=== PATIENT | male | born 1985 | race Caucasian/White ===

== ENCOUNTER 2017-10-18 18:19 | Emergency (ER) | payer OTHER ==
[2017-10-18 18:27] VITALS: BP 122/79
[2017-10-18] MEDS ORDERED: LIDOCAINE 1% INJ-PF (10 MG/ML) 30 ML SDV INJ ONE (19:41)
[2017-10-18] MEDS ORDERED: DOXYCYCLINE HYCLATE 100 MG TABLET PO ONE (20:17)
--- NOTE | 2017-10-18 20:22 | ER Document Report ---
ED General - General Chief Complaint: Finger Injury Stated Complaint: FINGER INJURY Time Seen by Provider: 10/18/17 19:41 TRAVEL OUTSIDE OF THE [place] IN LAST 30 DAYS: No - HPI Notes: 32-year-old male presents with fishhook stuck in his left index finger. This is a right-hand male who is up-to-date with tetanus, indicates he was fishing just prior to arrival in the hook became stuck in his index finger near his DIP on the volar surface. Immediate sharp pain, nonradiating. Clean fishhook. Attached to a Luhr. No other modifying factors, no other associated symptoms, no other provocative or palliative factors. - Related Data Allergies/Adverse Reactions: No Known Allergies Allergy (Unverified 10/18/17 18:23) Past Medical History - Social History Smoking Status: Never Smoker Family History: Reviewed & Not Pertinent Patient has suicidal ideation: No Patient has homicidal ideation: No - Medical History Medical History: Negative Renal/ Medical History: Denies: Hx Peritoneal Dialysis Review of Systems - Review of Systems Notes: Review of systems as in history of present illness, otherwise no significant headache, chest pain, abdominal pain. Physical Exam - Vital signs Vitals: Temp Pulse Resp BP Pulse Ox 99.6 F 81 18 122/79 96 10/18/17 18:25 10/18/17 18:25 10/18/17 18:25 10/18/17 18:25 10/18/17 18:25 - Notes Notes: General: Well devloped, no acute distress. HEENT: Normocephalic, atraumatic. Pupils equal round reactive to light. Mucosa moist. No JVD. Chest: No trauma, normal excursion. Respiratory: Good air exchange, normal excursion. Cardiac: Regular rhythm Abdomen: Soft, benign. Nondistended. Back: No asymmetry or gross abnormality. Motor: Grossly normal power and tone. Neurologic: Alert, nonfocal. Vascular: Well perfused Skin: No petechiae or purpura Left finger has an intact fishhook foreign body near the volar DIP. Normal neurovascular exam Course - Re-evaluation Re-evalutation: 10/18/17 20:19 Well-appearing male, fishhook stuck in finger. X-rays obtained does not appear to show joint violation. The fishhook is removed as described below. Wound is irrigated, given a dose of doxycycline a prescription for the same, naproxen for pain. Procedure note: After appropriate cleansing, digital block is achieved with 1% lidocaine without epinephrine. Excellent anesthesia is achieved. Wound is then cleaned with Shur-Clens. In a axial fashion the distal hook is then rotated through the volar surface of the skin. Grasped with needle drivers and the maria ines tip is cut and the remainder of the hook is backed out in the same tract. No complications are noted. - Vital Signs Vital signs: Temp Pulse Resp BP Pulse Ox 99.6 F 81 18 122/79 96 10/18/17 18:25 10/18/17 18:25 10/18/17 18:25 10/18/17 18:25 10/18/17 18:25 Discharge - Discharge Clinical Impression: Foreign body finger Condition: Good Disposition: HOME, SELF-CARE Instructions: Foreign Body ([facility]) Prescriptions: Doxycycline Hyclate 100 mg PO BID #14 capsule
--- NOTE | 2017-10-18 21:24 | RADIOLOGY REPORT (SQ) ---
EXAM DESCRIPTION: FINGER LEFT COMPLETED DATE/TIME: 10/18/2017 7:59 pm REASON FOR STUDY: Eval for fish hook in DIP COMPARISON: None. NUMBER OF VIEWS: Three views. TECHNIQUE: AP, lateral, and oblique images acquired of the left second finger. LIMITATIONS: None. FINDINGS: MINERALIZATION: Normal. BONES: No acute fracture or dislocation. No worrisome bone lesions. SOFT TISSUES: There is a fishhook in the distal aspect of the 2nd digit. This does not involve the b one. OTHER: No other significant finding. IMPRESSION: [place] is in the soft tissues. COMMENT: SITE OF TRAUMA/COMPLAINT MARKED/STAMP COMPLETED: Yes TECHNICAL DOCUMENTATION: JOB ID: [id number] [employer]- All Rights Reserved Reading location - IP/workstation name: [email or web address]
== END 2017-10-18 20:32 | disposition home or self-care (01) ==
LOC: ER 18:19
PROC: 0JCK0ZZ Extirpation of Matter from Left Hand Subcutaneous Tissue and Fascia, Open Approach (ICD-10-PCS; principal; 2017-10-18)
DX: S61.241A Puncture wound with foreign body of left index finger without damage to nail, initial encounter (principal); X58.XXXA Exposure to other specified factors, initial encounter
CPT/HCPCS: 99283; 73140; 20103; J3490

== ENCOUNTER 2018-09-07 09:23 | Observation (INO) | payer OTHER ==
[2018-09-07] MEDS ORDERED: PREDNISONE 20 MG TABLET PO ONE (10:59)
[2018-09-07] MEDS ORDERED: IPRATROPIUM/ALBUTEROL 0.5-2.5 MG/3 ML AMPUL NEB ONE (10:59)
--- NOTE | 2018-09-07 11:01 | ER Document Report ---
HPI - HPI Patient complains to provider of: Cough Onset: Other - 3 weeks Onset/Duration: Persistent Pain Level: 2 Context: Patient presents complaining of cough for the past 3 weeks. Patient states cough was initially productive and has become dry since then. Patient states he has had a slight fever. Patient also reports sore throat and exposure to strep at home. 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 Patient states that he stopped taking his metoprolol due to his cough a few days ago. Associated Symptoms: Nonproductive cough, Fever. denies: Chest pain Exacerbated by: Denies Relieved by: Denies Similar symptoms previously: No Recently seen / treated by doctor: No - ROS ROS below otherwise negative: Yes Systems Reviewed and Negative: Yes All other systems reviewed and negative - CONSTITUTIONAL Constitutional: REPORTS: Fever - EENT EENT: REPORTS: Sore Throat - NEURO Neurology: DENIES: Headache - CARDIOVASCULAR Cardiovascular: DENIES: Chest pain - RESPIRATORY Respiratory: REPORTS: Coughing - GASTROINTESTINAL Gastrointestinal: DENIES: Nausea, Patient vomiting - DERM Skin Color: Normal Skin Problems: None <AZALEA NGUYEN - Last Filed: 09/07/18 14:46> <ROC VIGIL - Last Filed: 09/07/18 19:05> - HPI Time Seen by Provider: 09/07/18 10:51 Past Medical History - General Information source: Patient - Social History Smoking Status: Never Smoker Frequency of alcohol use: None Drug Abuse: None Occupation: None Lives with: Family Family History: Reviewed & Not Pertinent Pulmonary Medical History: Reports: Hx Asthma - Exercise-induced as a child Renal/ Medical History: Denies: Hx Peritoneal Dialysis Traumatic Medical History: Reports: Hx Traumatic Brain Injury Past Surgical History: Reports: Hx Appendectomy, Hx Herniorrhaphy <AZALEA NGUYEN - Last Filed: 09/07/18 14:46> Vertical Provider Document - CONSTITUTIONAL Agree With Documented VS: Yes Exam Limitations: No Limitations General Appearance: WD/WN, No Apparent Distress - INFECTION CONTROL TRAVEL OUTSIDE OF THE [place] IN LAST 30 DAYS: No - HEENT HEENT: Atraumatic, Normocephalic, Pharyngeal Tenderness, Pharyngeal Erythema. negative: Pharyngeal Exudate, Tympanic Membrane Red, Tympanic Membrane Bulging - NECK Neck: Normal Inspection, Supple. negative: Lymphadenopathy-Left, Lymphadenopathy-Right - RESPIRATORY Respiratory: No Respiratory Distress, Wheezing - CARDIOVASCULAR Cardiovascular: Regular Rhythm, No Murmur, Tachycardia - BACK Back: Normal Inspection - MUSCULOSKELETAL/EXTREMETIES Musculoskeletal/Extremeties: CORA [place] - NEURO Level of Consciousness: Awake, Alert, Appropriate Motor/Sensory: No Motor Deficit - DERM Integumentary: Warm, Dry, No Rash <AZALEA NGUYEN - Last Filed: 09/07/18 14:46> Course - Re-evaluation Re-evalutation: 09/07/18 11:00 Patient reports cough for the past 3 weeks that started productive and has since become dry. Patient reports low-grade fever at home with wheezing. Patient also complains of sore throat. Patient denies any recent travel bedrest or mobilization. Patient is concerned he has bronchitis. Offered patient chest x- ray, patient declined stating he does not have insurance and does not want to pay for that at this time. Discussed with patient concern that he is tachycardic and has had low-grade fevers and that this would be helpful in ruling out any pneumonia , thorax, or other underlying lung infection or pathology. Patient continues to decline chest x-ray at this time. Physical form will be obtained. 09/07/18 11:44 Patient continues with right-sided wheezing, additional nebulizer treatment o rdered. Patient continues to refuse x-ray at this time. 09/07/18 14:06 Patient with continued bilateral wheezing after third nebulizer treatment. Patient is diaphoretic at this time. Patient ambulated in the hallway, patient tachycardic heart rate 120s to 130s and oxygen saturation 92%. Patient advised that I would like to order additional testing including chest x-ray EKG labs and give him IV magnesium to help with his symptoms. Patient states that he is not certain that he wants to stay and needs to think about it at this time. Patient states that he did not take his beta-meka today so he thought that his heart rate would be fast because of this. Patient states that he will let staff know if he would be agreeable with having additional testing at this time. 09/07/18 14:25 Patient is agreeable with staying for additional testing at this time. design quality engineer advised and room will be obtained on the main side of the emergency department. 09/07/18 14:36 Bedside report and handoff given to Jd Vigil ENROLLED NURSE - Vital Signs Vital signs: Temp Pulse Resp BP Pulse Ox 99.9 F 112 H 18 141/82 H 95 09/07/18 09:28 09/07/18 09:28 09/07/18 09:28 09/07/18 09:28 09/07/18 09:28 - Laboratory Laboratory results interpreted by me: 09/07/18 12:08 Labs- Entire Visit 09/07/18 11:04 Group A Strep Rapid NEGATIVE <AZALEA NGUYEN - Last Filed: 09/07/18 14:46> - Re-evaluation Re-evalutation: 09/07/18 14:36 I received bedside report from Azalea Ngyuen ENROLLED NURSE. Patient was over in the minor side and due to patient's diaphoresis, fever and continued wheezing further work-up was initiated and patient was placed on the main side in room 12 for close monitoring. I did assess the patient who did have some expiratory wheezes and a continuous cough. Satya Nguyen ENROLLED NURSE placed further orders. 16:00 Patient sitting upright on stretcher, patient does have intermittent diaphoresis. 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 Lab work is pending and blood cultures to be obtained. 09/07/18 17:22 Nurse reported that patient did have a low-grade temperature. An appropriate dose of Tylenol was ordered. Patient's CBC does show a bandemia with a shift. I do believe the patient requires admission to the hospital. I did discuss this with the patient and IV antibiotics were initiated. Patient reports that he does not really want to stay as he needs to contact his nursing instructors. 18:14 Patient continues to sit upright on stretcher with intermittent cough. Patient temperature improved and is 98.9. Patient states he feels okay to go home. I did discuss with the patient the importance of admission due to the laboratory findings. Patient states he would like to call his instructor to see if he can have his test moved. At that time I will call to have him admitted to the hospital. 09/07/18 18:16 I did speak with Dr. Cai regarding patient admission. Patient does agree to stay in the hospital for observation. Patient is sitting upright on stretcher no acute distress. Patient does need to have intermittent episodes of diapho resis. Patient's lungs significantly improved with scattered rhonchi. She has tolerated p.o. Patient to be admitted. - Vital Signs Vital signs: Temp Pulse Resp BP Pulse Ox 99.9 F 112 H 18 141/82 H 95 09/07/18 09:28 09/07/18 09:28 09/07/18 09:28 09/07/18 09:28 09/07/18 09:28 - Laboratory Result Diagrams: 09/07/18 14:57 09/07/18 14:57 Laboratory results interpreted by me: 09/07/18 09/07/18 14:57 14:57 WBC 12.3 H Seg Neuts % (Manual) 90 H Band Neutrophils % 8 H Lymphocytes % (Manual) 0 L Monocytes % (Manual) 2 L Abs Neuts (Manual) 12.1 H Abs Lymphs (Manual) 0.0 L Glucose 121 H 09/07/18 17:30 She does have a leukocytosis with a white count of 12.3, neutrophils 90 and neutrophil bands at 8. Does have bandemia. - Diagnostic Test Radiology reviewed: Reports reviewed <ROC VIGIL - Last Filed: 09/07/18 19:05> Discharge <AZALEA NGUYEN - Last Filed: 09/07/18 14:46> - Discharge Admitting Provider: Ayala (Hospitalist) Unit Admitted: Medical Floor <ROC VIGIL - Last Filed: 09/07/18 19:05> - Discharge Clinical Impression: Wheezing, Sore throat, Bandemia, Tachycardia, Diaphoresis Leukocytosis Qualifiers: Leukocytosis type: bandemia Qualified Code(s): D72.825 - Bandemia Fever Qualifiers: Fever type: unspecified Qualified Code(s): R50.9 - Fever, unspecified Condition: Stable Disposition: ADMITTED OBSERVATION
[2018-09-07] MEDS ORDERED: ALBUTEROL SULFATE 0.083% NEB 2.5 MG/3 ML AMPUL NEB ONE ×3 (11:44→14:37)
[2018-09-07] MEDS ORDERED: NORMAL SALINE 1000 ML 1,000 ML IV ONE (14:24)
[2018-09-07 15:21] LABS: HEMATOCRIT 42.1 % (37.9-51.0); HEMOGLOBIN 14.3 g/dL (13.5-17.0); MEAN CORPUSCULAR HEMOGLOBIN 28.2 pg (27.0-33.4); MEAN CORPUSCULAR HGB CONC 33.9 g/dL (32.0-36.0); MEAN CORPUSCULAR VOLUME 83 fl (80-97); PLATELET COUNT 211 10^3/uL (150-450); RED BLOOD COUNT 5.06 10^6/uL (4.35-5.55); RED CELL DISTRIBUTION WIDTH 13.2 % (11.5-14.0); WHITE BLOOD COUNT 12.3 10^3/uL (4.0-10.5)
--- NOTE | 2018-09-07 15:26 | RADIOLOGY REPORT (SQ) ---
EXAM DESCRIPTION: CHEST 2 VIEWS COMPLETED DATE/TIME: 09/07/2018 3:16 pm REASON FOR STUDY: cough COMPARISON: None. EXAM PARAMETERS: NUMBER OF VIEWS: two views TECHNIQUE: Digital Frontal and Lateral radiographic views of the chest acquired. RADIATION DOSE: NA LIMITATIONS: none FINDINGS: LUNGS AND PLEURA: No opacities, masses or pneumothorax. No pleural effusion. MEDIASTINUM AND HILAR STRUCTURES: No masses or contour abnormalities. HEART AND VASCULAR STRUCTURES: Heart normal size. No evidence for failure. BONES: No acute findings. HARDWARE: None in the chest. OTHER: No other significant finding. IMPRESSION: NO ACUTE RADIOGRAPHIC FINDING IN THE CHEST. TECHNICAL DOCUMENTATION: JOB ID: [id number] [employer] All Rights Reserved Reading location - IP/workstation name: [email or web address]
[2018-09-07 15:41] LABS: ALANINE AMINOTRANSFERASE 36 U/L (21-72); ALBUMIN 4.5 g/dL (3.5-5.0); ALKALINE PHOSPHATASE 74 U/L (38-126); ANION GAP 13 (5-19); ASPARTATE AMINO TRANSFERASE 44 U/L (17-59); BILIRUBIN,DIRECT 0.3 mg/dL (0.0-0.4); BILIRUBIN,TOTAL 0.5 mg/dL (0.2-1.3); BLOOD UREA NITROGEN 12 mg/dL (7-20); CALCIUM 9.3 mg/dL (8.4-10.2); CARBON DIOXIDE 25 mmol/L (22-30); CHLORIDE 101 mmol/L (98-107); GLUCOSE 121 mg/dL (75-110); POTASSIUM 3.8 mmol/L (3.6-5.0); SODIUM 138.5 mmol/L (137-145); TOTAL PROTEIN 7.2 g/dL (6.3-8.2)
[2018-09-07 15:58] LABS: ABSOLUTE MONOCYTES # (MANUAL) 0.2 10^3/uL (0.1-1.4); BAND NEUTROPHILS % (MANUAL) 8 % (3-5); BASOPHILS % (MANUAL) 0 % (0-2); EOSINOPHILS % (MANUAL) 0 % (0-6); LYMPHOCYTES % (MANUAL) 0 % (13-45); MONOCYTES % (MANUAL) 2 % (3-13); SEGMENTED NEUTROPHILS % (MAN) 90 % (42-78); TOTAL CELLS COUNTED 100
[2018-09-07 15:59] LABS: PLATELET CLUMPS PRESENT
[2018-09-07 16:00] LABS: RBC MORPHOLOGY COMMENT NORMO-CYTIC/CHROMIC
[2018-09-07] MEDS ORDERED: CEFTRIAXONE 1 GM/D5W RTU 1 GM/50 ML RTUPB IV ONE (16:27)
[2018-09-07] MEDS ORDERED: AZITHROMYCIN INJ 500 MG VIAL IV ONE (16:27)
[2018-09-07] MEDS ORDERED: ACETAMINOPHEN 325 MG TABLET PO ONE (17:21)
[2018-09-07] MEDS: METHYLPREDNISOLONE INJ 40 MG/1 ML SDV IV SCH (18:57)
--- NOTE | 2018-09-07 19:11 | PDOC H&P ---
History of Present Illness Admission Date/PCP: GARETT العراقي NP Patient complains of: SOB, cough History of Present Illness: MARA GUAJARDO is a 32 year old male with no significant PMH aside from migraines and childhood asthma who presented with increasing SOB. Patient says he has been having moderately productive cough and SOB for the past 3 weeks. He says his and daughter also had cough and colds and both were diagnosed with bronchitis and were recently prescribed with antibiotics. He says he continues to have increasing and worsening SOB in the past 2-3 days. Per ER provider, when patient came in he had significant wheezes and received 3 doses of breathing treatment and IV steroids. They tried to ambulate him to see if he can be discharged home and reportedly became diaphoretic, winded and short of breath. Past Medical History Pulmonary Medical History: Reports: Asthma - Exercise-induced as a child Traumatic Medical History: Reports: Traumatic Brain Injury Past Surgical History Past Surgical History: Reports: Appendectomy, Herniorrhaphy Social History Lives with: Family Smoking Status: Never Smoker Family History Family History: Reviewed & Not Pertinent Parental Family History Reviewed: Yes - no premature CAD Children Family History Reviewed: No Sibling(s) Family History Reviewed.: No Medication/Allergy Home Medications: Metoprolol Succinate [Toprol Xl 25 mg Tab.sr] 25 mg PO DAILY 09/07/18 Allergies/Adverse Reactions: No Known Allergies Allergy (Verified 09/07/18 09:26) Review of Systems All systems: reviewed and no additional remarkable complaints except as stated - as mentoned in HPI Physical Exam Vital Signs: Temp Pulse Resp BP Pulse Ox 100.2 F 120 H 18 135/57 H 92 09/07/18 17:18 09/07/18 17:04 09/07/18 09:28 09/07/18 17:04 09/07/18 17:04 Intake & Output 09/06/18 09/07/18 09/08/18 06:59 06:59 06:59 Weight 287 lb 7.724 oz General appearance: PRESENT: no acute distress, well-developed, well-nourished Head exam: PRESENT: atraumatic, normocephalic Eye exam: PRESENT: conjunctiva pink, EOMI, PERRLA. ABSENT: scleral icterus Ear exam: PRESENT: normal external ear exam Mouth exam: PRESENT: moist, tongue midline Neck exam: ABSENT: carotid bruit, JVD, lymphadenopathy, thyromegaly Respiratory exam: PRESENT: rhonchi. ABSENT: rales, wheezes Pulses: PRESENT: normal dorsalis pedis pul GI/Abdominal exam: PRESENT: normal bowel sounds, soft. ABSENT: distended, guarding, mass, organolmegaly, rebound, tenderness Rectal exam: PRESENT: deferred Neurological exam: PRESENT: alert, awake, oriented to person, oriented to place, oriented to time, oriented to situation, CN II-XII grossly intact. ABSENT: motor sensory deficit Results Laboratory Results: 09/07/18 14:57 09/07/18 14:57 09/07/18 09/07/18 14:57 14:57 WBC 12.3 H RBC 5.06 Hgb 14.3 Hct 42.1 MCV 83 MCH 28.2 MCHC 33.9 RDW 13.2 Plt Count 211 Seg Neutrophils % Not Reportable Lymphocytes % Not Reportable Monocytes % Not Reportable Eosinophils % Not Reportable Basophils % Not Reportable Absolute Neutrophils Not Reportable Absolute Lymphocytes Not Reportable Absolute Monocytes Not Reportable Absolute Eosinophils Not Reportable Absolute Basophils Not Reportable Sodium 138.5 Potassium 3.8 Chloride 101 Carbon Dioxide 25 Anion Gap 13 BUN 12 Creatinine 0.96 Est GFR ( Amer) > 60 Est GFR (Non-Af Amer) > 60 Glucose 121 H Calcium 9.3 Magnesium 1.6 Total Bilirubin 0.5 AST 44 ALT 36 Alkaline Phosphatase 74 Total Protein 7.2 Albumin 4.5 09/07/18 14:57 Troponin I < 0.012 Impressions: Chest X-Ray 09/07/18 14:23 IMPRESSION: NO ACUTE RADIOGRAPHIC FINDING IN THE CHEST. Assessment and Plan - Diagnosis (1) Asthma exacerbation Is this a current diagnosis for this admission?: Yes Plan: IV steroids. Scheduled breathing treatments. (2) Bronchitis Is this a current diagnosis for this admission?: Yes Plan: CXR is normal. He received Rcoephin and azithromycin in the ER. He does have leukocytosis and significant bandemia. Continue azithromycin. Consider pursuing chest CT to rule out occult pneumonia if there is no improvement with current r egimen.
--- NOTE | 2018-09-07 19:35 | EKG REPORT ---
SEVERITY:- OTHERWISE NORMAL ECG - SINUS TACHYCARDIA : Confirmed by: Marquita Lee MD 07-Sep-2018 19:34:49
[2018-09-07] MEDS: IPRATROPIUM/ALBUTEROL 0.5-2.5 MG/3 ML AMPUL NEB SCH (20:04)
[2018-09-07] MEDS: HEPARIN SOD (PORCINE) 5,000 UNIT/ML 1 ML SYRINGE SUBCUT SCH (21:21)
[2018-09-08] MEDS: IPRATROPIUM/ALBUTEROL 0.5-2.5 MG/3 ML AMPUL NEB SCH ×4 (00:39→12:29)
[2018-09-08] MEDS: METHYLPREDNISOLONE INJ 40 MG/1 ML SDV IV SCH (05:28)
[2018-09-08] MEDS: HEPARIN SOD (PORCINE) 5,000 UNIT/ML 1 ML SYRINGE SUBCUT SCH (09:01)
--- NOTE | 2018-09-08 11:31 | PDOC DISCHARGE SUMMARY ---
General - Admit/Disc Date/PCP Admission Date/Primary Care Provider: 09/07/18 18:52 GARETT العراقي NP Discharge Date: 09/08/18 - Discharge Diagnosis (1) Asthma exacerbation Is this a current diagnosis for this admission?: Yes (2) Morbid obesity with BMI of 45.0-49.9, adult Is this a current diagnosis for this admission?: Yes (3) Hypertension Is this a current diagnosis for this admission?: Yes - Additional Information Resuscitation Status: Full Code Prescriptions: Albuterol Sulfate [Albuterol Sulfate Hfa] 8.5 gm IH Q6H #1 hfa.aer.ad Azithromycin [Zithromax 250 mg Tablet] 500 mg PO QPM #10 tablet Home Medications: Metoprolol Succinate [Toprol Xl 25 mg Tab.sr] 25 mg PO DAILY 09/07/18 Albuterol Sulfate [Albuterol Sulfate Hfa] 8.5 gm IH Q6H #1 hfa.aer.ad 09/08/18 Azithromycin [Zithromax 250 mg Tablet] 500 mg PO QPM #10 tablet 09/08/18 History of Present Illness History of Present Illness: MARA GUAJARDO is a 32 year old male with no significant PMH aside from migraines and childhood asthma who presented with increasing SOB. Patient says he has been having moderately productive cough and SOB for the past 3 weeks. He says his and daughter also had cough and colds and both were diagnosed with bronchitis and were recently prescribed with antibiotics. He says he continues to have increasing and worsening SOB in the past 2-3 days. Per ER provider, when patient came in he had significant wheezes and received 3 doses of breathing treatment and IV steroids. They tried to ambulate him to see if he can be discharged home and reportedly became diaphoretic, winded and short of breath. Hospital Course Hospital Course: This morning patient seen and examined at bedside. He is awake alert oriented. His shortness of breath has subsided and patient is eager to go home. I listen to his chest and chest is clear no wheezing or crepitation. His vital signs and blood work are unremarkable. Patient is going to be discharged with albuterol sulfate inhaler and Zithromax 500 mg p.o. daily for 5 days. Physical Exam Vital Signs: Temp Pulse Resp BP Pulse Ox 98.5 F 104 H 16 151/69 H 96 09/08/18 08:00 09/08/18 08:00 09/08/18 08:00 09/08/18 08:00 09/08/18 08:00 Intake & Output 09/07/18 09/08/18 09/09/18 06:59 06:59 06:59 Intake Total 2190 Balance 2190 Weight 133 kg General appearance: PRESENT: no acute distress, morbidly obese Head exam: PRESENT: atraumatic Eye exam: PRESENT: conjunctiva pink Neck exam: ABSENT: carotid bruit, JVD, lymphadenopathy, thyromegaly Cardiovascular exam: PRESENT: RRR. ABSENT: diastolic murmur, rubs, systolic murmur GI/Abdominal exam: PRESENT: normal bowel sounds, soft. ABSENT: distended, guarding, mass, organolmegaly, rebound, tenderness Neurological exam: PRESENT: alert, awake, oriented to person, oriented to place, oriented to time, oriented to situation Results Laboratory Results: 09/07/18 14:57 09/07/18 14:57 09/07/18 09/07/18 14:57 14:57 WBC 12.3 H RBC 5.06 Hgb 14.3 Hct 42.1 MCV 83 MCH 28.2 MCHC 33.9 RDW 13.2 Plt Count 211 Seg Neutrophils % Not Reportable Lymphocytes % Not Reportable Monocytes % Not Reportable Eosinophils % Not Reportable Basophils % Not Reportable Absolute Neutrophils Not Reportable Absolute Lymphocytes Not Reportable Absolute Monocytes Not Reportable Absolute Eosinophils Not Reportable Absolute Basophils Not Reportable Sodium 138.5 Potassium 3.8 Chloride 101 Carbon Dioxide 25 Anion Gap 13 BUN 12 Creatinine 0.96 Est GFR ( Amer) > 60 Est GFR (Non-Af Amer) > 60 Glucose 121 H Calcium 9.3 Magnesium 1.6 Total Bilirubin 0.5 AST 44 ALT 36 Alkaline Phosphatase 74 Total Protein 7.2 Albumin 4.5 09/07/18 14:57 Troponin I < 0.012 Impressions: Chest X-Ray 09/07/18 14:23 IMPRESSION: NO ACUTE RADIOGRAPHIC FINDING IN THE CHEST. Qualifiers - * PATIENT BEING DISCHARGED WITH ANY OF THE FOLLOWING DIAGNOSIS: No Acute Heart Failure - Is this a Heart Failure Patient?: No LVEF < 40%?: No- if no continue to question #3 3. Anticoagulant therapy for permanect/persistent/paraoxysmal Afib or Aflutter: N/A
[2018-09-08 12:07] LABS: HEMATOCRIT 41.2 % (37.9-51.0); HEMOGLOBIN 13.9 g/dL (13.5-17.0); MEAN CORPUSCULAR HEMOGLOBIN 28.4 pg (27.0-33.4); MEAN CORPUSCULAR HGB CONC 33.7 g/dL (32.0-36.0); MEAN CORPUSCULAR VOLUME 84 fl (80-97); PLATELET COUNT 226 10^3/uL (150-450); RED CELL DISTRIBUTION WIDTH 13.4 % (11.5-14.0); WHITE BLOOD COUNT 16.6 10^3/uL (4.0-10.5)
[2018-09-08 12:33] LABS: ABSOLUTE LYMPHOCYTES# (MANUAL) 0.3 10^3/uL (0.5-4.7); ABSOLUTE MONOCYTES # (MANUAL) 0.7 10^3/uL (0.1-1.4); BASOPHILS % (MANUAL) 0 % (0-2); EOSINOPHILS % (MANUAL) 0 % (0-6); LYMPHOCYTES % (MANUAL) 2 % (13-45); MONOCYTES % (MANUAL) 4 % (3-13); RBC MORPHOLOGY COMMENT NORMO-CYTIC/CHROMIC; SEGMENTED NEUTROPHILS % (MAN) 94 % (42-78); TOTAL CELLS COUNTED 100
[2018-09-08 12:34] LABS: PLATELET COMMENT ADEQUATE
[2018-09-08 12:40] VITALS: BP 129/66
[2018-09-08] MEDS ORDERED: MAGNESIUM SULFATE/D5W 1 GM/100 ML RTUPB IV ONE (14:25)
[2018-09-08] MEDS ORDERED: AZITHROMYCIN 250 MG TABLET PO SCH (18:00)
== END 2018-09-08 13:08 | disposition home or self-care (01) ==
LOC: ER 09:23 → EH 18:52 → 4N 20:59
PROVIDERS: ADMIT Internal Medicine; ATTEND Internal Medicine
DX: J45.901 Unspecified asthma with (acute) exacerbation (principal); J40 Bronchitis, not specified as acute or chronic; I10 Essential (primary) hypertension; E66.01 Morbid (severe) obesity due to excess calories; Z68.42 Body mass index [BMI] 45.0-49.9, adult; Z88.8 Allergy status to other drugs, medicaments and biological substances
CPT/HCPCS: 36415; 71046; 80053; 83735; 84484; 85025; 85379; 87040; 87070; 87880; 93005; 93010; 94640; 96361; 96365; 96366; 96368; 96375; 99285; G0378; J0456; J0696; J2920; J3490; J7030; J7512; J7620